=== PATIENT | female | born 1960 | race Caucasian/White ===

== ENCOUNTER 2019-02-25 11:47 | Emergency (ER) | payer BC ==
[~2019-02-25] VITALS: Ht 162.6 cm; Wt 61.2 kg
[2019-02-25 12:28] VITALS: BP 145/71
[2019-02-25] MEDS ORDERED: TRAM50TA PO (12:45)
[2019-02-25] MEDS ORDERED: PRED20TA PO (12:45)
--- NOTE | 2019-02-25 12:46 | PHYS DOC ---
Past History Past Medical History: No Pertinent History Past Surgical History: Hysterectomy Alcohol Use: None Drug Use: None Adult General Chief Complaint Chief Complaint: BACK PAIN OR INJURY HPI HPI 59-year-old female presents with left sciatic pain. The patient has had multiple injections and other treatments for several years. She had a fusion done earlier this year, but x-rays a few weeks ago showed diffusion process had not begun. The patient is visiting from [place]. She is having a flareup and was in a lot of discomfort. She has to fly back to [place] tomorrow and is concerned about the pain during the flight. She has not had any recent trauma or falls. She denies fever or chills. She has no other complaints. Review of Systems Review of Systems Constitutional: Denies fever or chills [] Eyes: Denies change in visual acuity, redness, or eye pain [] HENT: Denies nasal congestion or sore throat [] Respiratory: Denies cough or shortness of breath [] Cardiovascular: No additional information not addressed in HPI [] GI: Denies abdominal pain, nausea, vomiting, bloody stools or diarrhea [] : Denies dysuria or hematuria [] Musculoskeletal: Left sided low back pain[] Integument: Denies rash or skin lesions [] Neurologic: Denies headache, focal weakness or sensory changes [] Endocrine: Denies polyuria or polydipsia [] All other systems were reviewed and found to be within normal limits, except as documented in this note. Allergies Allergies Allergies Coded Allergies Type Severity Reaction Last Updated Verified No Known Drug Allergies 02/25/19 No Physical Exam Physical Exam Constitutional: Well developed, well nourished, no acute distress, non-toxic appearance. [] HENT: Normocephalic, atraumatic, bilateral external ears normal, oropharynx moist, no oral exudates, nose normal. [] Eyes: PERRLA, EOMI, conjunctiva normal, no discharge. [] Neck: Normal range of motion, no tenderness, supple, no stridor. [] Cardiovascular:Heart rate regular rhythm, no murmur [] Lungs & Thorax: Bilateral breath sounds clear to auscultation [] Abdomen: Bowel sounds normal, soft, no tenderness, no masses, no pulsatile masses. [] Skin: Warm, dry, no erythema, no rash. [] Back: Tenderness over left sacroiliac joint. [] Extremities: No tenderness, no cyanosis, no clubbing, ROM intact, no edema. [] Neurologic: Alert and oriented X 3, normal motor function, normal sensory function, no focal deficits noted. [] Psychologic: Affect normal, judgement normal, mood normal. [] Current Patient Data Vital Signs Vital Signs Date Time Temp Pulse Resp B/P (MAP) Pulse Ox O2 Delivery O2 Flow Rate FiO2 02/25/19 12:28 98.7 89 20 100 Room Air EKG EKG [] Radiology/Procedures Radiology/Procedures [] Course & Med Decision Making Course & Med Decision Making Pertinent Labs and Imaging studies reviewed. (See chart for details) Patient is quite tender in this location. Her history is in line with what I would expect for sacroiliitis. I will give her 5 days prednisone and a prescription for tramadol. We will give her first doses in the ED. Her family members driving her home. She is stable for discharge at this time. [] Dragon Disclaimer Dragon Disclaimer This electronic medical record was generated, in whole or in part, using a voice recognition dictation system. Departure Departure: Impression: Primary Impression: Chronic left sacroiliac joint pain Disposition: HOME, SELF-CARE Condition: STABLE Referrals: PCP,NO (PCP) Scripts Tramadol Hcl (TRAMADOL HCL) 50 Mg Tablet 50 MG PO PRN Q6HRS PRN for PAIN, #14 TAB Prov: VIJAY MCCALL DO 02/25/19 Prednisone (PREDNISONE) 20 Mg Tablet 1 TAB PO DAILY for prednisone taper for 5 Days, #10 TAB Take 3 tabs daily for 2 days, then take 2 tabs daily for 1 day, then take 1 tab daily for 2 days. Prov: VIJAY MCCALL DO 02/25/19 VIJAY MCCALL DO Feb 25, 2019 12:46
[2019-02-25] MEDS ORDERED: predniSONE 20 MG TABLET PO ONE (13:10)
[2019-02-25] MEDS ORDERED: traMADol 50 MG TABLET PO ONE (13:10)
== END 2019-02-25 12:52 | disposition home or self-care (01) ==
LOC: ER 11:47
DX: G89.29 Other chronic pain (principal); M53.3 Sacrococcygeal disorders, not elsewhere classified; M54.5 Low back pain
CPT/HCPCS: 99283; J7512